=== PATIENT | female | born 1965 | race Hispanic/Latino ===

== ENCOUNTER 2016-08-10 05:45 | Day surgery (SDC) | payer OTHER ==
[2016-08-10] MEDS ORDERED: LACTATED RINGERS 0 ML ONE (06:10)
[2016-08-10] MEDS ORDERED: LACTATED RINGERS 1,000 ML ONE (06:10)
[2016-08-10] MEDS ORDERED: PROPOFOL 200 MG/20 ML VIAL IV ONE (07:00)
--- NOTE | 2016-08-10 09:44 | OP ---
DATE OF PROCEDURE: 08/10/16 PREOPERATIVE DIAGNOSIS: 1. Colon cancer screen. POSTOPERATIVE DIAGNOSIS: 1. Normal colon to the cecum. PROCEDURE: 1. Colonoscopy. SURGEON: Anton Brewer MD. ANESTHESIA: MAC by Pantera Osuna CRNA. ESTIMATED BLOOD LOSS: None. COMPLICATIONS: None apparent. TECHNIQUE: After informed consent was obtained from the patient, the patient was taken to the Endoscopy Suite and put in the left lateral decubitus position. After adequate IV sedation was obtained, a digital rectal exam was performed which revealed normal sphincter tone and no intraluminal masses. The colonoscope was then passed with good visualization all the way through the colon. The bowel prep was good. The cecum was identified by the presence of ileocecal valve and appendiceal orifice. The scope was then withdrawn slowly over the next 8 to 10 minutes and a good look at the entire colonic mucosa was obtained. There were no polyps, diverticula, or other mucosal anomalies identified. The scope was removed. The patient tolerated the procedure well. The patient was transported to the outpatient area in good condition. She will followup on a p.r.n. basis. She was encouraged to consume a high fiber diet. #[id number] [facility]
[2016-08-10 10:06] VITALS: TEMP 97.6
[2016-08-10 10:11] VITALS: BP 154/74; O2SAT 100
== END 2016-08-10 10:05 | disposition home or self-care (01) ==
LOC: AMB 05:45
PROVIDERS: ATTEND Family Medicine
DX: Z12.11 Encounter for screening for malignant neoplasm of colon (principal); M17.10 Unilateral primary osteoarthritis, unspecified knee
CPT/HCPCS: 00810; 45378; J3490; J7120

== ENCOUNTER → 2016-08-11 | Outpatient (CLI) | payer OTHER ==
--- NOTE | 2016-08-11 08:47 | CT ---
EXAM DESCRIPTION: CT ABDOMEN PELVIS WITHOUT IV CONTRAST CLINICAL HISTORY: ELEVATED LFTS COMPARISON: None Available TECHNIQUE: CT of the abdomen and Pelvis was performed without IV contrast. FINDINGS: There is diffuse fatty infiltration of the liver with focal sparing adjacent to the gallbladder. No mass or other focal liver lesion is identified, but the liver is slightly enlarged with its tip lying at the level of the right iliac crest. There is no calcified gallstone or biliary duct dilation. No ascites. The spleen is not enlarged. The exam is otherwise unremarkable for noncontrast technique. IMPRESSION: Diffuse fatty infiltration of the liver with focal sparing adjacent to gallbladder and borderline hepatomegaly. No liver mass or other abnormality to explain elevated LFTs.. Electronically signed by: Armin Amaral DO 08/11/2016 08:46
== END | disposition home or self-care (01) ==
LOC: CT 08:01
PROVIDERS: ATTEND Family Medicine
DX: R94.5 Abnormal results of liver function studies (principal)